=== PATIENT | male | born 1995 | race Hispanic/Latino ===

== ENCOUNTER 2016-11-19 18:32 | Emergency (ER) | payer SELFPAY | END 2016-11-20 04:12 | disposition left against medical advice (07) | LOC: ED 18:32 | DX: M54.5 Low back pain (principal); Z53.21 Procedure and treatment not carried out due to patient leaving prior to being seen by health care provider ==

== ENCOUNTER 2017-05-23 11:49 | Emergency (ER) | payer BC ==
[2017-05-23 14:17] VITALS: BP 136/86
--- NOTE | 2017-05-23 16:19 | Emergency Department Report ---
ED Extremity Problem HPI - General Chief complaint: Extremity Problem,Nontraumatic Stated complaint: RIGHT LEG PAIN,SWOLLEN Time Seen by Provider: 05/23/17 16:17 Source: patient, family Mode of arrival: Ambulatory Limitations: No Limitations - History of Present Illness Initial comments: Patient reports that his right upper leg of the back hurts 1 month. He said is worse since this past week and he think he is pulled a muscle. He said pain is worse when he standing from sitting position. Reports his slight swelling but denies any bruising in or trauma. He said he pulled a muscle and it hurts but it doesn't usually hurts this much. Denies any redness. Denies any numbness or tingling. Denies any difficulty walking. Pain is 6 out of 10 and achy. He denies taking any [id number] medication. Denies any recent long distance travel by car or airplane, denies any recent surgery, denies any swelling in her legs, denies any pain in calf. Denies any hormone therapy. Denies any personal history of blood clots or any family history of blood clots. Denies any fever or chills. Denies any nausea or vomiting. Denies any history of back pain. MD Complaint: extremity pain, extremity swelling (mild localized swelling to back of thigh) Onset/Timin -: month(s) Location: right, other (right thigh) -: Yes arthralgia, No fever, No associated dyspnea, No associated chest pain Radiation: none Severity scale (0 -10): 6 Quality: aching Consistency: intermittent Improves with: immobilization, rest Worsens with: weight bearing, walking Associated Symptoms: arthralgias. denies: chest pain, shortness of breath, fever, myalgias, rash - Related Data Previous Rx's Medication Instructions Recorded Last Taken Type Cyclobenzaprine [Flexeril 10 MG 10 mg PO TID PRN #15 tablet 05/23/17 Unknown Rx TAB] traMADol [Ultram] 50 mg PO Q6HR PRN #12 tablet 05/23/17 Unknown Rx Allergies Allergy/AdvReac Type Severity Reaction Status Date / Time No Known Allergies Allergy Verified 05/23/17 14:12 ED Review of Systems ROS: Stated complaint: RIGHT LEG PAIN,SWOLLEN Other details as noted in HPI Comment: All other systems reviewed and negative Constitutional: no symptoms reported Respiratory: no symptoms reported Cardiovascular: denies: chest pain, palpitations, dyspnea on exertion, edema, syncope, paroxysmal nocturnal dyspnea Gastrointestinal: denies: abdominal pain, nausea, vomiting, diarrhea Genitourinary: denies: urgency, dysuria, frequency, hematuria, discharge, testicular pain, testicular mass Musculoskeletal: arthralgia. denies: back pain, joint swelling, myalgia Skin: denies: rash Neurological: denies: headache, weakness, numbness, paresthesias, confusion, abnormal gait, vertigo Hematological/Lymphatic: denies: easy bleeding, easy bruising, swollen glands ED Past Medical Hx - Past Medical History Previous Medical History?: No - Surgical History Past Surgical History?: No - Family History Family history: no significant - Social History Smoking Status: Current Every Day Smoker Substance Use Type: None - Medications Home Medications: Home Medications Medication Instructions Recorded Confirmed Last Taken Type Cyclobenzaprine [Flexeril 10 MG 10 mg PO TID PRN #15 tablet 05/23/17 Unknown Rx TAB] traMADol [Ultram] 50 mg PO Q6HR PRN #12 tablet 05/23/17 Unknown Rx ED Physical Exam - General Limitations: No Limitations General appearance: alert, in no apparent distress - Head Head exam: Present: atraumatic, normocephalic - Eye Eye exam: Present: normal appearance, PERRL, EOMI. Absent: nystagmus, periorbital swelling, periorbital tenderness Pupils: Present: normal accommodation - ENT ENT exam: Present: normal exam, normal orophraynx, mucous membranes moist - Neck Neck exam: Present: normal inspection, full ROM, other (no C-spine tenderness). Absent: tenderness, meningismus, lymphadenopathy - Respiratory Respiratory exam: Present: normal lung sounds bilaterally. Absent: respiratory distress, wheezes, rales, rhonchi, stridor, chest wall tenderness, accessory muscle use, decreased breath sounds, prolonged expiratory - Cardiovascular Cardiovascular Exam: Present: regular rate, normal rhythm, normal heart sounds. Absent: systolic murmur, diastolic murmur - GI/Abdominal GI/Abdominal exam: Present: soft, normal bowel sounds. Absent: distended, tenderness, guarding, rebound, rigid, organomegaly, mass, bruit, pulsatile mass , hernia - Extremities Exam Extremities exam: Present: normal inspection, full ROM, normal capillary refill , other (bilateral extremities without clubbing cyanosis or edema, +2 pulses in all extremities, no neurovascular compromise.). Absent: tenderness, pedal edema , joint swelling, calf tenderness - Expanded Lower Extremity Exam Right Hip exam: Present: normal inspection, full ROM, pelvic stability. Absent: tenderness, swelling, abrasion, laceration, ecchymosis, deformity, crepidus, dislocation, erythema, external rotation, internal rotation, shortening Upper Leg exam: Present: normal inspection, full ROM. Absent: tenderness, swelling, abrasion, laceration, ecchymosis, deformity, crepidus, dislocation, erythema Knee exam: Present: normal inspection, full ROM, full knee extension. Absent: tenderness, swelling, abrasion, laceration, ecchymosis, deformity, crepidus, dislocation, erythema, effusion, pain w/ pronation/supination, posterior draw sign, pain/laxity with valgus, pain/laxity with varus Lower Leg exam: Present: normal inspection, full ROM. Absent: tenderness, swelling, abrasion, laceration, ecchymosis, deformity, crepidus, dislocation, erythema, palpable cord, Abhi's sign Ankle exam: Present: normal inspection, full ROM. Absent: tenderness, swelling , abrasion, laceration, ecchymosis, deformity, crepidus, dislocation, erythema Foot/Toe exam: Present: normal inspection, full ROM. Absent: tenderness, swelling, abrasion, laceration, ecchymosis, deformity, crepidus, dislocation, erythema, amputation, puncture wound, foreign body, calcaneal tenderness, tenderness at base of 5th metatarsal, nail avulsion, subungual hematoma Neuro vascular tendon exam: Present: no vascular compromise. Absent: pulse deficit, abnormal cap refill, motor deficit, sensory deficit, tendon deficit, extremity cold to touch, pallor, abnormal 2-point discrimination, decreased fine /light touch, foot drop, peroneal nerve deficit, significant pain with passive ROM of distal joint Gait: Positive: observed and normal - Back Exam Back exam: Present: normal inspection, full ROM. Absent: tenderness, CVA tenderness (R), CVA tenderness (L), muscle spasm, paraspinal tenderness, vertebral tenderness, rash noted - Neurological Exam Neurological exam: Present: alert, oriented X3, normal gait, reflexes normal. Absent: motor sensory deficit - Psychiatric Psychiatric exam: Present: normal affect, normal mood - Skin Skin exam: Present: warm, dry, intact, normal color. Absent: rash ED Course Vital Signs 05/23/17 14:12 Temperature 97.6 F Pulse Rate 70 Respiratory 18 Rate Blood Pressure 136/86 O2 Sat by Pulse 97 Oximetry - Reevaluation(s) Reevaluation #1: 05/23/17 18:13 Patient stable. Received Blackstone 10/325 mg and Flexeril 10 mg emergency room. ED Medical Decision Making - Radiology Data Radiology results: report reviewed right femur reveal no acute bony abdomen the but possible mild soft tissue swelling. - Medical Decision Making ED course: I discussed with patient that his x-ray was negative for any bony abdomen allergies he has some mild soft tissue swelling and will need to follow- up with orthopedic doctor for further evaluation. I discussed with him that he needs to rest, ice compress and elevate affected area for 3 days.0 points Low risk group for DVT. Unlikely according to [facility] DVT studies. Patient received Percocet 10/325 mg and Flexeril 10 mg when necessary emergency room or relief of pain. Patient to follow up with primary care physician and he does not have one so I discussed with him that he needs to follow up with [facility] and orthopedic doctor in 3 days. Diagnosis and treatment plan explained to patient and he voiced understanding and discharged home with prescription for proximal and Naproxen and Flexeril Critical care attestation.: If time is entered above; I have spent that time in minutes in the direct care of this critically ill patient, excluding procedure time. ED Disposition Clinical Impression: Arthralgia of right thigh Disposition: DC-01 TO HOME OR SELFCARE Is pt being admited?: No Does the pt Need Aspirin: No Condition: Stable Instructions: Arthralgia (ED), RICE Therapy (ED), How to Stop Smoking (ED) Additional Instructions: follow-up with [facility] 3 days Follow protocol on RICE therapy Please do not drive or operate heavy machinery while taking Flexeril as this medication causes drowsiness follow up with orthopedic doctor Dr. Toscano in 3 days for further evaluation Prescriptions: Cyclobenzaprine [Flexeril 10 MG TAB] 10 mg PO TID PRN #15 tablet PRN Reason: Muscle Spasm traMADol [Ultram] 50 mg PO Q6HR PRN #12 tablet PRN Reason: Pain Referrals: PRIMARY CAREMD [Primary Care Provider] - 05/26/17 [facility] [Outside] - 05/26/17 MARITA TOSCANO MD [Staff Physician] - 05/26/17 Forms: Accompanied Note, Work/School Release Form(ED)
--- NOTE | 2017-05-23 17:41 | XRay Report ---
FINAL REPORT PROCEDURE: XR FEMUR 2+V RT TECHNIQUE: Two views of the right femur are obtained HISTORY: rt thigh pain after injury COMPARISON: No prior studies are available for comparison. FINDINGS: There is no fracture or dislocation. No arthritic changes are seen. There is likely soft tissue swelling in the right thigh. IMPRESSION: No fracture is seen.
[2017-05-23] MEDS ORDERED: NORCO 10/325 PO ONE (18:04)
[2017-05-23] MEDS ORDERED: FLEXERIL PO ONE (18:04)
== END 2017-05-23 18:47 | disposition home or self-care (01) ==
LOC: ED 11:49
DX: M79.651 Pain in right thigh (principal); F17.200 Nicotine dependence, unspecified, uncomplicated